=== PATIENT | female | born 1940 | race Caucasian/White ===

== ENCOUNTER 2017-03-22 20:03 | Inpatient (IN) | payer OTHER ==
[~2017-03-22] VITALS: Ht 154.9 cm; Wt 84.5 kg
--- NOTE | 2017-03-22 20:14 | NUR ---
PATIENT WAS BROUGHT IN BY EMS WITH COMPLAINT OF NAUSEA, VOMITING AND LLQ ABDOMINAL PAIN. SEEN WITH FACIAL GRIMACE . C/O 9/10 PAIN SCALE SHARP PAIN.
--- NOTE | 2017-03-22 20:50 | NUR ---
PATIENT MEDICATED WITH ZOFRAN AND FENTANYL. LAB AT THE BEDSIDE DRAWING BLOOD
[2017-03-22 21:00] LABS: CALCIUM 9.3 mg/dL (8.5-10.1); CARBON DIOXIDE 31.2 mmol/L (21-32); CHLORIDE SERUM 102 mmol/L (98-107); CREATININE SERUM 1.6 mg/dL (0.6-1.0); GLUCOSE SERUM 161 mg/dL (74-106); POTASSIUM SERUM 4.4 mmol/L (3.5-5.1); SODIUM SERUM 139 mmol/L (136-145)
[2017-03-22 21:03] LABS: PLATELET COUNT 299 x10^3mcL (130-400); RED CELL DISTRIBUTION WIDTH 14.5 % (11.5-14.5)
[2017-03-22 21:04] LABS: ALBUMIN 3.4 g/dL (3.4-5.0); ALKALINE PHOSPHATASE 69 U/L (46-116); ALT/SGPT 49 U/L (14-59); AMYLASE 56 U/L (25-115); AST/SGOT 45 U/L (15-37); BILIRUBIN TOTAL 0.73 mg/dL (0.20-1.00); LIPASE 304 IU/L (73-393); TOTAL PROTEIN, SERUM 7.5 g/dL (6.4-8.2)
[2017-03-22] MEDS ORDERED: LEVAQUIN750 MG PO (21:09)
[2017-03-22] MEDS ORDERED: FLONS (21:10)
[2017-03-22] MEDS ORDERED: ASPIR LOW81 MG PO (21:10)
[2017-03-22] MEDS ORDERED: METFORMIN HCL500 MG PO (21:10)
[2017-03-22] MEDS ORDERED: LIPI10 PO (21:11)
[2017-03-22] MEDS ORDERED: FENOFIBRATE160 M1 PO (21:11)
[2017-03-22] MEDS ORDERED: LORAZEPAM1 MG PO (21:12)
[2017-03-22] MEDS ORDERED: LISINOPRIL2.5 MG PO (21:14)
[2017-03-22] MEDS ORDERED: CITALOPRAM HYDR20 M1 PO (21:14)
[2017-03-22] MEDS ORDERED: MONTELUKAST SOD10 M1 PO (21:15)
[2017-03-22] MEDS ORDERED: MECLIZINE HYDRO25 M1 PO (21:15)
[2017-03-22] MEDS ORDERED: ADVAIR DISKUS 11 DSK IH (21:16)
[2017-03-22] MEDS ORDERED: SPIRIVA18 MC1 INH (21:17)
[2017-03-22] MEDS ORDERED: ALBUTEROL SULFAT0.51 NEB (21:17)
[2017-03-22] MEDS ORDERED: QUEP PO (21:18)
[2017-03-22] MEDS ORDERED: GOOD SENSE ALL10 MG (21:19)
--- NOTE | 2017-03-22 21:41 | NUR ---
RECEIVED PATIENT FROM ER VIA [facility]. PATIENT ALERT AND ORIENTED. TELE #28 SR. IV ACCESS TO WNL. C/O ABDOMINAL PAIN 11/13. WILL MEDICATE ORDERED. ORIENTED PATIENT TO ROOM AND SURROUNDINGS. BED IN LOW POSITION. SIDE RAILS UP X2. CALL LIGHT WITHIN REACH. WILL ENDORSE CARE TO PRIMARY NURSE BENJY GILES.
--- NOTE | 2017-03-22 21:45 | NUR ---
INTRODUCED SELF RN, PT STATES PAIN 11/13 TO LLQ ABD. WILL MEDICATE PER ORDER, IV INFUSING LH NS @ 100ML/HR. NO REDNESS, SWELLING OR PAIN NOTED. RESP EVEN AN UNLABORED, ON 2L NC. NO C/O SOB AT THIS TIME. TELE # 28, NO C/O CP AT THIS TIME. GENERALIZED WEAKNESS, UNABLE TO TRANSFER SELF D/T INTENSE PAIN. SCD'S ON, CALL LIGHT WITHIN REACH, BED IN LOWEST POSITION, WILL CONTINUE TO MONITOR.
--- NOTE | 2017-03-22 21:47 | NUR ---
PATIENT SLEEPING POSY MEDICATION. SATURATION 83% OXYGEN 2 LITER GIVEN VIA N/C.
--- NOTE | 2017-03-22 22:06 | NUR ---
PATIENT IS ADMITTED TO THE HOSPITAL.
--- NOTE | 2017-03-22 22:21 | NUR ---
ADMISSION ROOM OBTAINED. REPORT WAS GIVEN TO ANTIONETTE. PATIENT WILL BE TRANSPORTED TO ROOM 209A SALINE BOLUS IS INFUSING .
--- NOTE | 2017-03-22 22:38 | NUR ---
PATIENT TRANAPORTED, WITH ANTIBIOTIC INFUSING AND SALINE AT 250 ML/HR PENDING LACTIC ACID.
[2017-03-22 23:01] VITALS: BP 141/49
--- NOTE | 2017-03-23 00:07 | NUR ---
PT REPORTS PAIN IS GONE BY USE OF NORCO. STATES SHE WILL NOT NEED TO USE THE ATIVAN TONIGHT D/T NORCO IS CONTROLLING HER PAIN. INFORMED HER TO LET ME KNOW IF SHE NEEDS A SLEEP AID, PT UNDERSTANDS AND IS TRYING TO SLEEP ON OWN. CALL LIGHT WITHIN REACH, BED IN LOWEST POSITION, WILL CONTINUE TO MONITOR.
[2017-03-23 00:39] LABS: T3 TOTAL 1.05 ng/mL
[2017-03-23 00:44] LABS: CHOLESTEROL/HDL RATIO 3.9; MAGNESIUM 1.9 mg/dL (1.8-2.4); PHOSPHOROUS 4.2 mg/dL (2.5-4.9)
[2017-03-23 00:49] LABS: FREE T4 0.94 ng/dL (0.76-1.46); FREE THYROXINE INDEX 2.5 ug/dL (1.4-4.5)
[2017-03-23 03:03] VITALS: BP 141/49
[2017-03-23 03:44] LABS: microscopic required? NO
[2017-03-23 04:28] LABS: UA SPECIFIC GRAVITY >=1.030 (1.005-1.035); urine erythrocyte NEGATIVE (NEGATIVE)
[2017-03-23 04:43] LABS: AMPHETAMINE QUAL UR NONE DETECTED (NEG <=1000)
[2017-03-23 05:57] VITALS: BP 126/44
[2017-03-23 06:14] LABS: BASOPHIL % 0.3 % (0-2); PLATELET COUNT 239 x10^3mcL (130-400)
[2017-03-23 06:24] LABS: CALCIUM 8.4 mg/dL (8.5-10.1); CARBON DIOXIDE 28.7 mmol/L (21-32); CHLORIDE SERUM 103 mmol/L (98-107); CREATININE SERUM 1.5 mg/dL (0.6-1.0); GLUCOSE SERUM 176 mg/dL (74-106); MAGNESIUM 1.8 mg/dL (1.8-2.4); PHOSPHOROUS 3.9 mg/dL (2.5-4.9); SODIUM SERUM 138 mmol/L (136-145)
[2017-03-23 06:46] LABS: RED CELL DISTRIBUTION WIDTH 14.9 % (11.5-14.5)
--- NOTE | 2017-03-23 07:36 | NUR ---
PT RESTING IN BED, DENIES PAIN AT THIS TIME. NO RESP DISTRESS NOTED. ALL CARE ENDORSED TO DAY SHIFT NURSE, ALL COMFORT MEASURES PROVIDED FOR, CALL LIGHT WITHIN REACH, BED IN LOWEST POSITION.
--- NOTE | 2017-03-23 08:00 | NUR ---
AWAKE AND ALERT. TEMP 99.8. TELE #28 SINUS RHYTHM. RESP 18 EVEN. BREATH SOUNDS CLEAR. OCCASIONAL DRY NON PRODUCTIVE COUGH. PULSE OX 97% ON 2L NC. OXYGEN RATE DECREASED TO 1L NC. DENIES SOB. ABD SOFT, BOWEL TONES PRESENT. LBM THIS AM LOOSE. REFUSES ORAL COLACE. C/O PAIN TO LMQ, "HAS NOT HAD PAIN LIKE THIS BEFORE. PAIN /." DX DIVERTICULITIS. WILL CONTINUE TO MONITOR FOR PAIN MANAGEMENT. VOIDING QS. NO EDEMA. PULSES PRESENT. SCD IN PLACE. IV PATENT LEFT HAND IVF CHANGED TO D5 1/2 NS AT 125CC/HR. REMAINS NPO. SIDE RAILS UP X2. CALL LIGHT IN REACH.
--- NOTE | 2017-03-23 08:40 | NUR ---
DR GREEN AND MEDICAL TEAM IN ON ROUNDS. CHARGE AND PRIMARY NURSE PRESENT. DISCUSSED DX DIVERTICULITIS AND TX WITH IV AND ANTIBIOTICS AND TO KEEP NPO. PT REPORTS "HAD DIVERTICULITIS BEFORE, BUT NEVER THIS BAD." VERBALIZED UNDERSTANDING OF TX PLAN.
--- NOTE | 2017-03-23 09:00 | NUR ---
PT UP TO BATHROOM, VOIDED AND HAD LOOSE STOOL. BACK TO BED. OXYGEN OFF AT THIS TIME. PT C/O LEFT SIDED ABD DISCOMFORT 11/13. MED WITH TORADOL 30MG IVP ORDERED. CALL LIGHT IN REACH.
[2017-03-23 09:03] VITALS: BP 115/52
--- NOTE | 2017-03-23 09:30 | NUR ---
REPORTS "PAIN DOWN TO 3/10." FEELING BETTER, NO NAUSEA. CALL LIGHT IN REACH.
[2017-03-23 13:43] VITALS: BP 107/41
--- NOTE | 2017-03-23 14:13 | NUR ---
PT RESTING. REPORTS "PAIN STILL 07/14. OK RIGHT NOW." IV CONTINUES PATENT. CALL LIGHT IN REACH. ORAL CARE SUPPLIES GIVEN.
--- NOTE | 2017-03-23 16:30 | NUR ---
PT C/O LMQ DISCOMFORT 10/14. SPOKE WITH DR JON. TORADOL DC DUE TO ELEVATED CREATININE LEVEL. REVIEWED MEDS. MED WITH ZOFRAN 4MG IVP AND NORCO ES PO ORDERED. FAMILY AT BEDSIDE. EMD=[id number]. NO RISS COVERAGE. SIDE RAILS UP X2. CALL LIGHT IN REACH.
[2017-03-23 16:42] VITALS: BP 108/43
--- NOTE | 2017-03-23 17:30 | NUR ---
PT SLEEPING. NO DISTRESS. CALL LIGHT IN REACH.
--- NOTE | 2017-03-23 19:25 | NUR ---
RECEIVED PT AWAKE AND ALERT. AOX4. VERBAL WITH CLEAR SPEECH. DENIES ANY DIZZINESS OR NAUSEA AT THIS TIME. NO S/S OF RESPIRATORY DISTRESS NOTED ON ROOM AIR. LUNGS CLEAR BILATERALLY. TELE 28, NSR. DENIES ANY CHEST PAIN. ABD SOFT AND ROUND. BOWEL SOUNDS ACTIVE. SKIN WARM AND DRY. IV PATENT AND INTACT TO LEFT HAND. IV D5 1/2NS INFUSING WELL. NO S/S OF INFECTION NOTED. NO EDEMA NOTED. DENIES ANY PAIN AT THIS TIME. NO S/S OF DISTRESS NOTED. CALL LIGHT WITHIN REACH. WILL CONTINUE TO MONITOR.
--- NOTE | 2017-03-23 20:40 | NUR ---
PT C/O HEADACHE. RECEIVED ROUTINE MEDICATIONS AND SWALLOWED WITHOUT DIFFICULTY. PRN TYLENOL 650 MG PO GIVEN FOR HEADACHE. NO S/S OF RESPIRATORY DISTRESS NOTED. CURRENTLY ON O2 2L VIA NC. CALL LIGHT WITHIN REACH. WILL CONTINUE TO MONITOR.
[2017-03-23 21:40] VITALS: BP 109/37
--- NOTE | 2017-03-24 00:34 | NUR ---
PT RESTING IN BED WITH EYES CLOSED. BREATHING EQUAL AND UNLABORED. NO S/S OF RESPIRATORY DISTRESS NOTED ON 2L VIA NC. IV PATENT AND INFUSING WELL. NO S/S OF DISTRESS NOTED. RESTING COMFORTABLY WITH RELAXED FACIAL FEATURES. CALL LIGHT WITHIN REACH. WILL CONTINUE TO MONITOR.
--- NOTE | 2017-03-24 01:35 | NUR ---
PT C/O 610 LLQ ABDOMINAL PAIN. NO S/S OF RESPIRATORY DISTRESS NOTED ON ROOM AIR. BREATHING EQUAL AND UNLABORED. PRN NORCO 7.5 MG PO GIVEN. CALL LIGHT WITHIN REACH. WILL CONTINUE TO MONITOR.
--- NOTE | 2017-03-24 03:53 | NUR ---
PT RESTING IN BED WITH EYES CLOSED. BREATHING EQUAL AND UNLABORED. NO S/S OF RESPIRATORY DISTRESS NOTED ON ROOM AIR. IV PATENT AND INFUSING WELL. RESTING COMFORTABLY WITH RELAXED FACIAL FEATURES. CALL LIGHT WITHIN REACH. WILL CONTINUE TO MONITOR.
[2017-03-24 05:54] VITALS: BP 124/50
--- NOTE | 2017-03-24 06:04 | NUR ---
PT SLEPT WELL THROUGHOUT THE NIGHT. EASILY AROUSED WHEN NAME CALLED. ALERT AND VERBAL WITH CLEAR SPEECH. REMAINS ON O2 2L VIA NC. NO S/S OF RESPIRATORY DISTRESS NOTED. IV PATENT AND INFUSING WELL. PT C/O 10/14 LLQ PAIN. PRN NORCO 7.5 MG PO GIVEN. CALL LIGHT WITHIN REACH. WILL CONTINUE TO MONITOR.
--- NOTE | 2017-03-24 07:47 | NUR ---
PT AWAKE AND ALERT. TEMP 98.1. TELE #28. DENIES CHEST DISCOMFORT. RESP 16 EVEN. BREATH SOUNDS DIMINISHED. OCCASIONAL NPC. PULSE OX 92% ON OXYGEN 1L NC. HX ASTHMA. ABD ROUNDED BUT SOFT, BOWEL TONES PRESENT. CONTINUES TO C/O LMQ TENDERNESS TO ABD /. LAST MED WITH NORCO ES AT 0554 WITH GOOD EFFECT. REMAINS NPO. LBM=11-17-17 LOOSE. VOIDING QS. NO EDEMA. PULSES PRESENT. SCD IN PLACE. IV PATENT LEFT HAND INFUSING D5 1/2 NS 125CC/HR. SIDE RAILS UP X2. CALL LIGHT IN REACH.
[2017-03-24 07:48] LABS: BASOPHIL % 0.2 % (0-2); PLATELET COUNT 211 x10^3mcL (130-400)
[2017-03-24 07:57] LABS: RED CELL DISTRIBUTION WIDTH 14.6 % (11.5-14.5)
[2017-03-24 08:26] LABS: CHLORIDE SERUM 104 mmol/L (98-107); POTASSIUM SERUM 4.1 mmol/L (3.5-5.1); SODIUM SERUM 137 mmol/L (136-145)
--- NOTE | 2017-03-24 09:50 | NUR ---
DR PORTILLO AND MEDICAL TEAM IN ON ROUNDS. CHARGE AND PRIMARY NURSE PRESENT. REVIEWED PLAN OF CARE. 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 IF CONTINUES STABLE AND CAN TOLERATE LIQUIDS PLAN FOR DISCHARGE HOME TOMORROW. PT VERBALIZED UNDERSTANDING.
[2017-03-24 10:06] VITALS: BP 108/46
[2017-03-24 10:34] LABS: CALCIUM 8.1 mg/dL (8.5-10.1); CREATININE SERUM 1.6 mg/dL (0.6-1.0); GLUCOSE SERUM 191 mg/dL (74-106); MAGNESIUM 1.9 mg/dL (1.8-2.4); PHOSPHOROUS 3.4 mg/dL (2.5-4.9)
--- NOTE | 2017-03-24 11:30 | NUR ---
PT C/O MILD ABD DISCOMFORT 09/13. REQUESTS PAIN MED. MED WITH NORCO ORDERED. FAMILY AT BEDSIDE. DIET ADVANCED TO CLEAR LIQ FOR LUNCH.
--- NOTE | 2017-03-24 12:35 | NUR ---
PT REPORTS "DID OK WITH LUNCH." NO C/O NAUSEA WITH CLEAR LIQ LUNCH. DENIES NEED FOR PAIN MED AT THIS TIME.
[2017-03-24 14:00] VITALS: BP 99/37
--- NOTE | 2017-03-24 17:45 | NUR ---
VXE=[id number]. NO RISS COVERAGE. HAD FULL LIQ DINNER MEAL, ATE FAST. THEN C/O ABD DISCOMFORT 6/10 AND MILD NAUSEA. NO EMESIS. REQUESTS MEDICATION. MED WITH ZOFRAN 4MG IVP AND NORCO ORDERED. UP TO BATHROOM HAD LOOSE STOOL. VOIDED. CALL LIGHT IN REACH.
--- NOTE | 2017-03-24 18:30 | NUR ---
PT REPORTS "STOMACH FEELS BETTER, NO MORE NAUSEA. STILL TENDERNESS ON LEFT SIDE." IV CONTINUES PATENT. CALL LIGHT IN REACH.
--- NOTE | 2017-03-24 19:40 | NUR ---
RECEIVED PT AWAKE AND ALERT. VERBAL WITH CLEAR SPEECH. NO S/S OF RESPIRATORY DISTRESS NOTED ON ROOM AIR. DENIES ANY SOB. 94% RA. LUNGS CLEAR BILATERALLY. ON TELE 28, NSR. DENIES ANY CHEST PAIN. ABD SOFT AND ROUND. BOWEL SOUNDS ACTIVE. DENIES ANY ABDOMINAL PAIN OR DISCOMFORT AT THIS TIME. DENIES ANY NAUSEA. SKIN WARM AND DRY. IV TO LEFT HAND PATENT AND INTACT. NO S/S OF INFECTION NOTED. NO EDEMA NOTED. NO S/S OF DISTRESS NOTED. CURRENTLY WATCHING TV. CALL LIGHT WITHIN REACH. WILL CONTINUE TO MONITOR.
[2017-03-24 21:34] VITALS: BP 119/40
--- NOTE | 2017-03-24 23:30 | NUR ---
PT C/O 10/14 LLQ PAIN. PRN NORCO 7.5 MG PO GIVEN. NO S/S OF RESPIRATORY DISTRESS NOTED ON ROOM AIR. CALL LIGHT WITHIN REACH. WILL CONTINUE TO MONITOR.
--- NOTE | 2017-03-25 00:48 | NUR ---
PT RESTING IN BED WITH EYES CLOSED. BREATHING EQUAL AND UNLABORED. NO S/S OF RESPIRATORY DISTRESS NOTED ON ROOM AIR. IV NS INFUSING WELL AT 120 ML/HR. NO S/S OF PAIN NOTED. RESTING WITH RELAXED FACIAL FEATURES. CALL LIGHT WITHIN REACH. WILL CONTINUE TO MONITOR.
[2017-03-25 05:57] VITALS: BP 131/47
--- NOTE | 2017-03-25 06:12 | NUR ---
PT SLEPT INTERMITTENTLY THROUGHOUT THE NIGHT. AWAKE AND ALERT AT THIS TIME. VERBAL WITH CLEAR SPEECH. NO S/S OF RESPIRATORY DISTRESS NOTED ON ROOM AIR. IV NS INFUSING WELL TO LEFT WRIST. NO S/S OF INFECTION NOTED. DENIES ANY PAIN OR DISCOMFORT AT THIS TIME. NO S/S OF DISTRESS NOTED. CALL LIGHT WITHIN REACH. WILL CONTINUE TO MONITOR.
[2017-03-25 06:20] LABS: BASOPHIL % 0.2 % (0-2); PLATELET COUNT 215 x10^3mcL (130-400); RED CELL DISTRIBUTION WIDTH 14.5 % (11.5-14.5)
[2017-03-25 06:35] LABS: CALCIUM 8.2 mg/dL (8.5-10.1); CARBON DIOXIDE 27.1 mmol/L (21-32); CHLORIDE SERUM 108 mmol/L (98-107); CREATININE SERUM 1.4 mg/dL (0.6-1.0); GLUCOSE SERUM 136 mg/dL (74-106); POTASSIUM SERUM 4.2 mmol/L (3.5-5.1); SODIUM SERUM 142 mmol/L (136-145)
--- NOTE | 2017-03-25 06:40 | NUR ---
PT C/O 10/14 LLQ PAIN. PRN NORCO 7.5 MG PO GIVEN. WILL CONTINUE TO MONITOR.
--- NOTE | 2017-03-25 07:57 | NUR ---
RECEIVED PT FROM NIGHT NURSE IN NO ACUTE DISTRESS. RESPIRATIONS EVEN AND UNLABORED ON RA. AAOX4. DENIES PAIN AT THIS TIME. IVF INFUSING AT BEDSIDE. BED IN LOWEST POSITION. CALL LIGHT WITHIN REACH. WILL CONTINUE TO MONITOR.
[2017-03-25 09:00] VITALS: BP 110/44
[2017-03-25 10:51] VITALS: BP 110/44
[2017-03-25] MEDS ORDERED: LEVOFLOXACIN500 M1 PO (11:03)
[2017-03-25] MEDS ORDERED: FLA500 PO (11:04)
[2017-03-25] MEDS ORDERED: LAC PO (11:05)
--- NOTE | 2017-03-25 12:32 | NUR ---
PT RESTING IN BED IN NO ACUTE DISTRESS. RESPIRATIONS EVEN AND UNLABORED ON RA. AAOX4. NORCO GIVEN FOR PAIN. IVF INFUSING AT BEDSIDE. BED IN LOWEST POSITION. CALL LIGHT WITHIN REACH. WILL CONTINUE TO MONITOR.
--- NOTE | 2017-03-25 16:25 | NUR ---
PT D/C TO HOME IN NO ACUTE DISTRESS. RESPIRATIONS EVEN AND UNLABORED ON RA. AAOX4. PT GIVEN D/C INSTRUCTIONS, GIVEN NEW PRESCRIPTIONS, INSTRUCTED TO FOLLOW UP WITH PCP. IV D/C INTACT. TELE REMOVED. PT ESCORTED TO LOBBY VIA WHEELCHAIR BY BELKYS PEREZ.
== END 2017-03-25 16:25 | disposition home or self-care (01) | DRG 391 ==
LOC: ED 20:03 → DU 21:59
PROVIDERS: Emergency Medicine; ADMIT Family Medicine Sports Medicine
DX: K57.32 Diverticulitis of large intestine without perforation or abscess without bleeding (principal); N17.0 Acute kidney failure with tubular necrosis; J98.11 Atelectasis; D68.69 Other thrombophilia; E11.51 Type 2 diabetes mellitus with diabetic peripheral angiopathy without gangrene; E11.65 Type 2 diabetes mellitus with hyperglycemia; I35.1 Nonrheumatic aortic (valve) insufficiency; D64.9 Anemia, unspecified; F32.9 Major depressive disorder, single episode, unspecified; H81.09 Meniere's disease, unspecified ear; J44.9 Chronic obstructive pulmonary disease, unspecified; F41.8 Other specified anxiety disorders; E03.9 Hypothyroidism, unspecified; G47.00 Insomnia, unspecified; Z96.651 Presence of right artificial knee joint; Z68.35 Body mass index [BMI] 35.0-35.9, adult
CPT/HCPCS: 82962; 83880; 84439; J1885; J1956; J2405; J3010; J3490; J7030; J7040; J7620; J7633; Q0092